=== PATIENT | female | born 1995 | race Caucasian/White ===

== ENCOUNTER 2023-03-14 10:34 | Emergency (ER) | payer BC, SELFPAY ==
[2023-03-14 10:49] VITALS: BP 128/82; PULSE 71; RESP 16; TEMP 36.4; O2SAT 100
--- NOTE | 2023-03-14 11:24 | ED.DENTAL ---
HPI - Dental/Oral General Chief complaint: Dental/Oral Stated complaint: TOOTHACHE Time Seen by Provider: 03/14/23 10:38 Source: patient Mode of arrival: ambulatory Limitations: no limitations History of Present Illness HPI Narrative: 27-year-old female presents to [facility] with complaints of right lower tooth pain for the past 2 days. Patient reports that she had a filling to the tooth but the back of the tooth broke off. Patient reports that she currently does not have a local dentist. Patient has been taking [id number] ibuprofen and Tylenol with minimal relief. Patient denies fever, body aches, chills, nausea, vomiting or diarrhea MD Complaint: tooth pain Location: Tooth # (29) Onset (ago): day(s) (2) Relieving factors: nothing Exacerbating factors: chewing Context: history of dental caries Treatment prior to arrival: oral analgesic Related Data Allergies Allergy/AdvReac Type Severity Reaction Status Date / Time No Known Allergies Allergy Verified 03/14/23 11:04 Review of Systems Constitutional: Constitutional: Denies chills, Denies fatigue, Denies fever(s) and Denies weakness ENT: Denies vertigo and Denies dizziness Comments: right lower dental pain Respiratory: Respiratory: Denies cough, Denies dyspnea and Denies wheezing Gastrointestinal: Gastrointestinal: Denies diarrhea, Denies nausea and Denies vomiting Integumentary/Breasts: Skin/Breast: Denies erythema, Denies rash and Denies skin ulcer Neurologic: Denies dizziness, Denies syncope and Denies headache(s) PMFSH Comments At time of signature, I agree with nursing past medical, surgical, social and family history. There is no relevant family history pertinent to the presenting complaint. Exam Const: General: healthy appearing Nutritional Appearance: well nourished Orientation/consciousness: patient oriented x3 Limitations: no limitations HENMT: Head: normal to inspection Ears: external ears normal and TM's normal bilaterally Face and sinus: normal facial exam Mouth: Yes lip normal and Yes moist mucous membranes Teeth and gingiva: abnormal tooth and associated gingiva (partial fracture noted to tooth #29; filling noted to tooth. ) lower right tender and other ( mild surrounding erythema noted. There is no obvious abscess noted) Throat: posterior oropharynx normal and uvula midline Neck: Neck: normal visual inspection Resp: Effort & Inspection: normal respiratory effort Auscultation: clear to auscultation bilaterally Cardio: Rate: regular rate Rhythm: regular rhythm Heart sounds: no murmurs Skin: General skin exam: normal color Rashes: no rashes Psych: Affect: normal affect Attitude: cooperative Course Course Level of Care: Express Care Visit Vital Signs Vital signs: Vital Signs Temperature 36.4 C L 03/14/23 10:49 Pulse Rate 71 03/14/23 10:49 Respiratory Rate 16 03/14/23 10:49 Blood Pressure 128/82 03/14/23 10:49 Pulse Oximetry 100 03/14/23 10:49 Temperature 36.4 C L 03/14/23 10:49 Pulse Rate 71 03/14/23 10:49 Respiratory Rate 16 03/14/23 10:49 Blood Pressure 128/82 03/14/23 10:49 Pulse Oximetry 100 03/14/23 10:49 MDM - Dental/Oral MDM Narrative Medical decision making narrative: instructed patient to follow up with local dentist as soon as possible. Instructed patient to complete warm salt water gargles and take [id number] Tylenol as needed. Patient agrees to take antibiotic and NSAID as prescribed Differential Diagnosis Differential diagnosis: Likely dental caries, toothache and dental abscess Critical Care Time Critical Care Time Critical Care Time: No Discharge Plan Discharge Clinical Impression: Toothache Patient Disposition: Home, Self-Care Condition: Stable Instructions: Antibiotic Form, Toothache (ED) Additional Instructions: warm saltwater gargles as needed
== END 2023-03-14 11:33 | disposition home or self-care (01) ==
PROVIDERS: Emergency Provider Nurse Practitioner Family
DX: K08.89 Other specified disorders of teeth and supporting structures (principal)
CPT/HCPCS: 99213; G0463

== ENCOUNTER 2023-03-14 16:04 | Emergency (ER) | payer BC, SELFPAY ==
[2023-03-14 16:16] VITALS: BP 146/92; PULSE 78; RESP 16; TEMP 36.3; O2SAT 100
--- NOTE | 2023-03-14 16:34 | ED.GENADULT ---
HPI - General Adult General Chief complaint: Dental/Oral Stated complaint: dental pain Time Seen by Provider: 03/14/23 16:24 History of Present Illness HPI narrative: 27-year-old female presents for evaluation of dentalgia. Patient has an infected molar on the right lower side of her jaw. She received Pen-Vee K and meloxicam from outside provider and started taking those today. She is taking them as directed and chewing ice for pain relief but the discomfort has made it so that she cannot sleep. No fever or drainage. Related Data Allergies Allergy/AdvReac Type Severity Reaction Status Date / Time No Known Allergies Allergy Verified 03/14/23 16:20 Review of Systems Review of Systems: CONSTITUTIONAL: Denies fever, chills, or sweats. EYES: Denies visual changes, redness, or discharge. ENT: Denies rhinorrhea, congestion, sore throat, or otalgia. CARDIOVASCULAR: Denies chest pain, palpitations, or edema. RESPIRATORY: Denies cough or dyspnea. GASTROINTESTINAL: Denies abdominal pain, nausea, vomiting, or diarrhea. GENITOURINARY: Denies dysuria or hematuria. SKIN: Denies rash or itching. MUSCULOSKELETAL: Denies back pain, joint pain, or myalgia. NEUROLOGIC: Denies headache, numbness, or weakness. PSYCHIATRIC: Denies anxiety or depression. Exam Narrative: GENERAL: Well-appearing, well-nourished, and in no acute distress. HEAD: Normocephalic, atraumatic. EYES: PERRLA and EOMI. ENT: Nares clear, no rhinorrhea or epistaxis. Mucous membranes moist. NECK: Supple. CHEST: Clear to auscultation. No respiratory distress. HEART: Regular rate and rhythm. No murmur heard. Normal peripheral pulses. ABDOMEN: Soft, nontender, nondistended, normal active bowel sounds. EXTREMITIES: Normal range of motion. No edema. SKIN: Warm, dry, no rash. NEURO: No focal deficits. Alert and oriented x3. PSYCH: Normal mood and affect. Course Vital Signs Vital signs: Vital Signs Temperature 97.3 F L 03/14/23 16:16 Pulse Rate 78 03/14/23 16:16 Respiratory Rate 16 03/14/23 16:16 Blood Pressure 146/92 H 03/14/23 16:16 Pulse Oximetry 100 03/14/23 16:16 Oxygen Delivery Room Air 03/14/23 16:16 Temperature 97.3 F L 03/14/23 16:16 Pulse Rate 78 03/14/23 16:16 Respiratory Rate 16 03/14/23 16:16 Blood Pressure 146/92 H 03/14/23 16:16 Pulse Oximetry 100 03/14/23 16:16 Oxygen Delivery Room Air 03/14/23 16:16 Medical Decision Making MDM Narrative Medical decision making narrative: 27-year-old female presents to our department with a dental infection. She already has appropriate antibiotics and pain medication provided and started taking them today. She came here requesting something a little bit stronger so that she can sleep. I have informed her that I am unable to send her home with narcotic pain medication but can give her a [place] here in our department to give the antibiotics time to take effect. Vital Signs Vital Signs: Vital Signs Temperature 97.3 F L 03/14/23 16:16 Pulse Rate 78 03/14/23 16:16 Respiratory Rate 16 03/14/23 16:16 Blood Pressure 146/92 H 03/14/23 16:16 Pulse Oximetry 100 03/14/23 16:16 Oxygen Delivery Room Air 03/14/23 16:16 Temperature 97.3 F L 03/14/23 16:16 Pulse Rate 78 03/14/23 16:16 Respiratory Rate 16 03/14/23 16:16 Blood Pressure 146/92 H 03/14/23 16:16 Pulse Oximetry 100 03/14/23 16:16 Oxygen Delivery Room Air 03/14/23 16:16 Discharge Plan Discharge Clinical Impression: Toothache, Dental caries Patient Disposition: Home, Self-Care Condition: Stable Instructions: Antibiotic Form Additional Instructions: Please take all medications as directed and follow-up with your dental appointment. Prescriptions: No Action penicillin V potassium 500 mg tablet 500 mg PO Q8H 10 Days Qty: 30 0RF meloxicam 7.5 mg tablet 7.5 mg PO BID 7 Days Qty: 14 0RF Follow-up/Referrals: PHYSICIAN,KENNEL HAND [Primary Care Prov
[2023-03-14] MEDS: HYDROcodone/acetaminophen (*CRX) 7.5-325 MG TABLET 1 TAB PO (16:41)
== END 2023-03-14 17:29 | disposition home or self-care (01) ==
PROVIDERS: Emergency Provider Emergency Medicine
DX: K02.9 Dental caries, unspecified (principal); K08.89 Other specified disorders of teeth and supporting structures
CPT/HCPCS: 99283; A9270